=== PATIENT | female | born 1940 | race Caucasian/White ===

== ENCOUNTER 2017-05-01 20:57 | Inpatient (IN) | payer MEDICARE, BC ==
[~2017-05-01] VITALS: Ht 139.7 cm; Wt 61.0 kg
[~2017-05-01 20:57] MED LIST: CRAN1CAP5; CRAN1TAB3; DILT240C90; DOCU100C40 PO; FLEC150T; HYDR-3964 PO; VALS160T2 PO
[2017-05-01] MEDS ORDERED: temazepam 15mg capsule PO PRN (21:00)
[2017-05-01] MEDS ORDERED: normal saline 1000ML IV soln IVB ONE (21:20)
[2017-05-01] MEDS ORDERED: fentaNYL/PF 50MCG/1 ML 2ML syringe IV ONE (21:35)
[2017-05-01] MEDS ORDERED: ondansetron/PF 4mg/2ml inj IV ONE (21:35)
[2017-05-01 21:37] LABS: BASOPHILS % (AUTO) 0.4 % (0-1); EOSINOPHILS % (AUTO) 0.2 % (0-6); HEMATOCRIT 41.1 % (35.0-45.0); HEMOGLOBIN 14.1 g/dl (12.0-16.0); LYMPHOCYTES # (AUTO) 1.5 X10'3 (1.1-4.8); MEAN CORPUSCULAR HEMOGLOBIN 34.8 PG (27.0-31.0); MEAN CORPUSCULAR HGB CONC 34.4 % (33.0-36.5); MEAN PLATELET VOLUME 7.8 FL (7.4-10.4); MONOCYTES # (AUTO) 0.3 X10'3 (0-0.9); MONOCYTES % (AUTO) 4.1 % (2-12); NEUTROPHILS # (AUTO) 6.4 X10'3 (1.8-7.7); NEUTROPHILS % (AUTO) 77.3 % (42-75); PLATELET COUNT 203 X10'3 (140-440); RED BLOOD COUNT 4.07 X10'6 (4.20-5.60); RED CELL DISTRIBUTION WIDTH 13.1 % (11.5-14.5); WHITE BLOOD COUNT 8.2 X10'3 (4.5-11.0)
[2017-05-01 21:45] LABS: CLARITY,URINE SLIGHTLY CLOUDY (Clear); COLOR,URINE YELLOW (Yellow); GLUCOSE, URINE NEGATIVE (Neg); KETONES,URINE NEGATIVE (Neg); LEUKOCYTE ESTERASE ,URINE LARGE (Neg); NITRITES, URINE POSITIVE (Neg); OCCULT BLOOD,URINE TRACE-INTACT (Neg); PROTEIN,URINE NEGATIVE (Neg); UROBILINOGEN,URINE 0.2 E.U/dL (0.2-1.0)
[2017-05-01 21:50] LABS: UA COLLECTION TYPE CLN CATCH MIDSTREAM
[2017-05-01 21:56] LABS: ALANINE AMINOTRANSFERASE 24 U/L (12-78); ALBUMIN/GLOBULIN RATIO 1.2 (1.1-1.5); ALKALINE PHOSPHATASE 120 IU/L (46-116); ANION GAP 10 (8-16); ASPARTATE AMINO TRANSFERASE 26 U/L (10-37); BILIRUBIN,TOTAL 0.3 MG/DL (0.1-1.0); BLOOD UREA NITROGEN 20 MG/DL (7-18); BUN/CREATININE RATIO 28.6 (6.6-38.0); CALCIUM 9.8 MG/DL (8.5-10.1); CHLORIDE 98 MMOL/L (99-107); GLUCOSE 124 MG/DL (70-104); MAGNESIUM 1.7 MG/DL (1.5-2.4); POTASSIUM 4.1 MMOL/L (3.5-5.1); SODIUM 134 MMOL/L (135-145); TOTAL CARBON DIOXIDE 26.3 MMOL/L (24-32); TOTAL PROTEIN 7.4 G/DL (6.4-8.2); eGFR 81 ML/MIN
[2017-05-01 22:22] LABS: BACTERIA,URINE 3+ /HPF (Neg); MUCUS STRANDS NONE SEEN /LPF (Neg); RBC,URINE 0-2 /HPF (0-2); SQUAMOUS EPITHELIAL CELL,UR FEW /LPF (FEW); WBC,URINE 30-50 /HPF (0-4)
[2017-05-01] MEDS ORDERED: magnesium 2GM in 50ml NS 50 ML IV PRN (23:15)
[2017-05-01] MEDS ORDERED: potassium Cl 20 mEq SR tablet PO PRN ×2 (23:15)
[2017-05-01] MEDS ORDERED: mag hydrox/Alum hydrox/simeth 30ml oral suspension PO PRN (23:15)
[2017-05-01] MEDS ORDERED: ondansetron/PF 4mg/2ml inj IV PRN (23:15)
[2017-05-01] MEDS ORDERED: acetaminophen 325mg tablet PO PRN (23:15)
[2017-05-01] MEDS ORDERED: magnesium 4gm in 100ml NS 100 ML IV PRN (23:15)
[2017-05-01] MEDS ORDERED: potassium Cl 40MEQ/NS 500ml 500 ML IV PRN ×2 (23:15)
[2017-05-01] MEDS ORDERED: morphine 2 MG/ML inj. syringe IV PRN (23:15)
[2017-05-01] MEDS: morphine 2 MG/ML inj. syringe IV PRN (23:48)
[2017-05-02] MEDS ORDERED: CefTRIAXone 2gm/NS 100ml IVPB 100 ML IV ONE (00:15)
[2017-05-02 00:20] VITALS: BP 98/46
[2017-05-02] MEDS: normal saline 1000ml 1,000 ML IV SCH ×2 (00:51→11:47)
[2017-05-02 03:33] LABS: ALANINE AMINOTRANSFERASE 21 U/L (12-78); ALBUMIN 3.3 G/DL (3.4-5.0); ALBUMIN/GLOBULIN RATIO 1.1 (1.1-1.5); ALKALINE PHOSPHATASE 97 IU/L (46-116); ANION GAP 7 (8-16); ASPARTATE AMINO TRANSFERASE 20 U/L (10-37); BILIRUBIN,TOTAL 0.2 MG/DL (0.1-1.0); BLOOD UREA NITROGEN 18 MG/DL (7-18); CALCIUM 9.3 MG/DL (8.5-10.1); CHLORIDE 102 MMOL/L (99-107); GLUCOSE 93 MG/DL (70-104); MAGNESIUM 1.5 MG/DL (1.5-2.4); POTASSIUM 4.4 MMOL/L (3.5-5.1); SODIUM 135 MMOL/L (135-145); TOTAL CARBON DIOXIDE 25.7 MMOL/L (24-32); TOTAL PROTEIN 6.2 G/DL (6.4-8.2); eGFR > 90 ML/MIN
[2017-05-02] MEDS: morphine 2 MG/ML inj. syringe IV PRN ×6 (03:49→22:22)
[2017-05-02 07:03] VITALS: BP 121/62
[2017-05-02] MEDS: K and/or MAG REPLACEMENT MC SCH (08:00)
[2017-05-02] MEDS: diltiazem CD 120mg capsule (once-daily) PO SCH (08:00)
[2017-05-02] MEDS: flecainide 50mg tablet PO SCH ×2 (08:00→20:11)
[2017-05-02 10:00] VITALS: BP 139/65
[2017-05-02 10:10] LABS: BASOPHILS % (AUTO) 0.3 % (0-1); EOSINOPHILS # (AUTO) 0.1 X10'3 (0-0.9); EOSINOPHILS % (AUTO) 1.1 % (0-6); HEMOGLOBIN 11.9 g/dl (12.0-16.0); LYMPHOCYTES # (AUTO) 1.3 X10'3 (1.1-4.8); LYMPHOCYTES % (AUTO) 19.2 % (21-51); MEAN CORPUSCULAR HEMOGLOBIN 34.3 PG (27.0-31.0); MEAN CORPUSCULAR HGB CONC 34.2 % (33.0-36.5); MEAN CORPUSCULAR VOLUME 100.3 FL (78-98); MEAN PLATELET VOLUME 8.1 FL (7.4-10.4); MONOCYTES # (AUTO) 0.7 X10'3 (0-0.9); MONOCYTES % (AUTO) 9.8 % (2-12); NEUTROPHILS # (AUTO) 4.7 X10'3 (1.8-7.7); NEUTROPHILS % (AUTO) 69.6 % (42-75); PLATELET COUNT 177 X10'3 (140-440); RED BLOOD COUNT 3.48 X10'6 (4.20-5.60); RED CELL DISTRIBUTION WIDTH 13.3 % (11.5-14.5); WHITE BLOOD COUNT 6.7 X10'3 (4.5-11.0)
[2017-05-02] MEDS: lactobacillus rhamnosus 10,000 MMU CELLS/CAPSULE PO SCH (17:38)
[2017-05-02 18:00] VITALS: BP 152/84
[2017-05-02] MEDS ORDERED: morphine 2 MG/ML inj. syringe IV PRN (19:25)
[2017-05-02] MEDS ORDERED: CefTRIAXone 2gm/NS 100ml IVPB 100 ML IV SCH ×2 (20:00)
[2017-05-02] MEDS: HYDROcodone/acetaminophen 5mg/325mg tablet PO SCH (20:13)
[2017-05-02 22:00] VITALS: BP 148/71
[2017-05-03] VITALS (19 sets, daily range): BP systolic 93–146; BP diastolic 50–93
[2017-05-03] MEDS: morphine 2 MG/ML inj. syringe IV PRN ×3 (04:10→18:46)
[2017-05-03] MEDS ORDERED: vancomycin 1,000mg inj ONE (07:00)
[2017-05-03] MEDS ORDERED: epiNEPHrine 1 mg/ml inj ONE (07:00)
[2017-05-03] MEDS ORDERED: ketorolac trometh. 30mg/ml inj. ONE (07:00)
[2017-05-03] MEDS ORDERED: ROPIVAcaine 0.5% (5mg/ml) 30ml vial ONE ×2 (07:00→08:10)
[2017-05-03] MEDS ORDERED: cloNIDine hcl/PF 100mcg/ml inj ONE ×2 (07:00→08:08)
[2017-05-03] MEDS ORDERED: vancomycin/NS 1 GM ADD-VANTAGE 250 ML IV ONE ×2 (07:10→21:00)
[2017-05-03] MEDS: pantoprazole 40mg Tablet.DR PO SCH (07:30)
[2017-05-03] MEDS: lactobacillus rhamnosus 10,000 MMU CELLS/CAPSULE PO SCH ×2 (07:30→17:30)
[2017-05-03] MEDS: diltiazem CD 120mg capsule (once-daily) PO SCH (07:42)
[2017-05-03] MEDS ORDERED: ringers solution, lacted 1,000 ML IV SCH (07:53)
[2017-05-03] MEDS ORDERED: labetalol 5mg/ml 20ml inj. IV PRN (07:55)
[2017-05-03] MEDS ORDERED: morphine 2 MG/ML inj. syringe IV PRN ×2 (07:55)
[2017-05-03] MEDS ORDERED: fentaNYL/PF 50MCG/1 ML 2ML syringe IV PRN ×2 (07:55)
[2017-05-03] MEDS ORDERED: ondansetron/PF 4mg/2ml inj IV PRN ×2 (07:55→09:15)
[2017-05-03] MEDS ORDERED: hydrALAZINE 20mg/ml inj. IV PRN (07:55)
[2017-05-03] MEDS: multivitamins, therapeutics tablet PO SCH (08:00)
[2017-05-03] MEDS: cefazolin/dext.iso 2gm/50ml 50 ML IV SCH ×2 (08:00→16:35)
[2017-05-03] MEDS: flecainide 50mg tablet PO SCH ×2 (08:00→19:53)
[2017-05-03] MEDS: K and/or MAG REPLACEMENT MC SCH (08:00)
[2017-05-03] MEDS: HYDROcodone/acetaminophen 5mg/325mg tablet PO SCH ×3 (08:00→19:53)
[2017-05-03] MEDS ORDERED: MORPHINE SULFATE/PF 0.5 MG/ML 10ML AMPUL ONE (08:06)
[2017-05-03] MEDS ORDERED: MIDAZolam 1mg/ml 10ml vial ONE (08:06)
[2017-05-03] MEDS ORDERED: fentaNYL/PF 50MCG/1 ML 2ML syringe ONE (08:06)
[2017-05-03] MEDS ORDERED: tetracaine 1% (10mg/ml) pres. free inj. ONE (08:08)
[2017-05-03 08:20] LABS: ALANINE AMINOTRANSFERASE 25 U/L (12-78); ALBUMIN 3.3 G/DL (3.4-5.0); ALKALINE PHOSPHATASE 103 IU/L (46-116); ANION GAP 6 (8-16); ASPARTATE AMINO TRANSFERASE 23 U/L (10-37); BILIRUBIN,TOTAL 0.7 MG/DL (0.1-1.0); BLOOD UREA NITROGEN 14 MG/DL (7-18); BUN/CREATININE RATIO 23.3 (6.6-38.0); CALCIUM 9.3 MG/DL (8.5-10.1); CHLORIDE 99 MMOL/L (99-107); GLUCOSE 96 MG/DL (70-104); MAGNESIUM 1.6 MG/DL (1.5-2.4); POTASSIUM 4.2 MMOL/L (3.5-5.1); SODIUM 133 MMOL/L (135-145); TOTAL CARBON DIOXIDE 28.5 MMOL/L (24-32); TOTAL PROTEIN 6.6 G/DL (6.4-8.2); eGFR > 90 ML/MIN
[2017-05-03 08:25] LABS: BASOPHILS % (AUTO) 0.3 % (0-1); EOSINOPHILS # (AUTO) 0.1 X10'3 (0-0.9); EOSINOPHILS % (AUTO) 1.4 % (0-6); HEMATOCRIT 36.5 % (35.0-45.0); HEMOGLOBIN 12.7 g/dl (12.0-16.0); LYMPHOCYTES # (AUTO) 1.1 X10'3 (1.1-4.8); LYMPHOCYTES % (AUTO) 17.3 % (21-51); MEAN CORPUSCULAR HEMOGLOBIN 34.8 PG (27.0-31.0); MEAN CORPUSCULAR HGB CONC 34.8 % (33.0-36.5); MEAN PLATELET VOLUME 8.1 FL (7.4-10.4); MONOCYTES # (AUTO) 0.5 X10'3 (0-0.9); MONOCYTES % (AUTO) 8.5 % (2-12); NEUTROPHILS # (AUTO) 4.6 X10'3 (1.8-7.7); NEUTROPHILS % (AUTO) 72.5 % (42-75); PLATELET COUNT 166 X10'3 (140-440); RED BLOOD COUNT 3.65 X10'6 (4.20-5.60); RED CELL DISTRIBUTION WIDTH 13.3 % (11.5-14.5); WHITE BLOOD COUNT 6.3 X10'3 (4.5-11.0)
[2017-05-03] MEDS ORDERED: ceFAZolin 1000mg inj ONE ×2 (08:41)
[2017-05-03] MEDS ORDERED: dexamethasone sod phosphate 4mg/ml inj. ONE (08:41)
[2017-05-03] MEDS ORDERED: tranexamic acid inj. 610 MG in normal saline 100ml IV soln 93.9 ML IV ONE ×4 (08:45)
[2017-05-03] MEDS ORDERED: albumin (Human) 5% 250ml 250 ML IV ONE ×5 (08:54→12:58)
[2017-05-03] MEDS ORDERED: diphenhydrAMINE 50 mg/ml inj IV PRN (09:15)
[2017-05-03] MEDS ORDERED: midazolam 2 mg/2 ml injection ONE ×2 (11:38)
[2017-05-03] MEDS ORDERED: meperidine/PF 50mg/ml syringe ONE (13:18)
[2017-05-03 13:55] LABS: ISTAT ANION GAP 13 (8-12); ISTAT BUN 11 mg/dL (6-19); ISTAT CL 98 mmol/L (99-107); ISTAT CREATININE 0.6 mg/dL (0.6-1.1); ISTAT GLUCOSE 117 mg/dL (70-104); ISTAT IONIZED CALCIUM 1.31 mmol/L (1.03-1.32); ISTAT K 4.4 mmol/L (3.5-5.1); ISTAT NA 134 mmol/L (135-145); ISTAT TOTAL CO2 23 mmol/L (24-32); ISTAT eGFR > 90 ML/MIN; POC BUN/CREATININE RATIO 18.3 (6.6-38.0)
[2017-05-03] MEDS ORDERED: HYDROcodone/acetaminophen 10/325mg tab PO PRN ×2 (13:55)
[2017-05-03 14:46] LABS: ISTAT HGB 6.5 g/dl (12.0-16.0); ISTAT Hct 19 %PCV (35-48)
[2017-05-03] MEDS ORDERED: cefazolin/dext.iso 2gm/50ml 50 ML IV SCH (16:00)
[2017-05-03 18:08] LABS: BASOPHILS % (AUTO) 0 % (0-1); EOSINOPHILS # (AUTO) 0.1 X10'3 (0-0.9); EOSINOPHILS % (AUTO) 0.9 % (0-6); HEMATOCRIT 24.4 % (35.0-45.0); HEMOGLOBIN 8.4 g/dl (12.0-16.0); LYMPHOCYTES # (AUTO) 0.2 X10'3 (1.1-4.8); LYMPHOCYTES % (AUTO) 3.2 % (21-51); MEAN CORPUSCULAR HEMOGLOBIN 32.8 PG (27.0-31.0); MEAN CORPUSCULAR HGB CONC 34.7 % (33.0-36.5); MEAN CORPUSCULAR VOLUME 94.7 FL (78-98); MEAN PLATELET VOLUME 7.5 FL (7.4-10.4); MONOCYTES # (AUTO) 0.3 X10'3 (0-0.9); NEUTROPHILS # (AUTO) 5.9 X10'3 (1.8-7.7); NEUTROPHILS % (AUTO) 90.9 % (42-75); PLATELET COUNT 86 X10'3 (140-440); RED BLOOD COUNT 2.58 X10'6 (4.20-5.60); RED CELL DISTRIBUTION WIDTH 15.5 % (11.5-14.5); WHITE BLOOD COUNT 6.5 X10'3 (4.5-11.0)
[2017-05-03 18:18] LABS: INR 1.2 INR
[2017-05-03 19:27] LABS: BASOPHILS % (AUTO) 0 % (0-1); EOSINOPHILS % (AUTO) 0 % (0-6); HEMATOCRIT 24.2 % (35.0-45.0); HEMOGLOBIN 8.3 g/dl (12.0-16.0); LYMPHOCYTES # (AUTO) 0.2 X10'3 (1.1-4.8); LYMPHOCYTES % (AUTO) 3.5 % (21-51); MEAN CORPUSCULAR HEMOGLOBIN 32.7 PG (27.0-31.0); MEAN CORPUSCULAR HGB CONC 34.4 % (33.0-36.5); MEAN CORPUSCULAR VOLUME 95.1 FL (78-98); MEAN PLATELET VOLUME 8.2 FL (7.4-10.4); MONOCYTES # (AUTO) 0.3 X10'3 (0-0.9); MONOCYTES % (AUTO) 5.4 % (2-12); NEUTROPHILS # (AUTO) 5.8 X10'3 (1.8-7.7); NEUTROPHILS % (AUTO) 91.1 % (42-75); PLATELET COUNT 88 X10'3 (140-440); RED BLOOD COUNT 2.55 X10'6 (4.20-5.60); RED CELL DISTRIBUTION WIDTH 15.9 % (11.5-14.5); WHITE BLOOD COUNT 6.3 X10'3 (4.5-11.0)
[2017-05-03] MEDS: potassium cl 20mEq in 1/2 NS 1,000 ML IV SCH (19:45)
[2017-05-04] MEDS: morphine 2 MG/ML inj. syringe IV PRN ×3 (00:39→04:35)
[2017-05-04 02:00] VITALS: BP 142/64
[2017-05-04] MEDS: potassium cl 20mEq in 1/2 NS 1,000 ML IV SCH ×3 (04:39→19:40)
[2017-05-04] MEDS: oxyCODONE/APAP 10/325mg tablet PO PRN ×5 (05:34→23:28)
[2017-05-04 05:57] LABS: BASOPHILS % (AUTO) 0 % (0-1); EOSINOPHILS % (AUTO) 0.1 % (0-6); HEMATOCRIT 23.3 % (35.0-45.0); HEMOGLOBIN 8.3 g/dl (12.0-16.0); LYMPHOCYTES # (AUTO) 0.7 X10'3 (1.1-4.8); LYMPHOCYTES % (AUTO) 9.6 % (21-51); MEAN CORPUSCULAR HEMOGLOBIN 33.7 PG (27.0-31.0); MEAN CORPUSCULAR HGB CONC 35.6 % (33.0-36.5); MEAN CORPUSCULAR VOLUME 94.8 FL (78-98); MEAN PLATELET VOLUME 8.4 FL (7.4-10.4); MONOCYTES # (AUTO) 0.7 X10'3 (0-0.9); MONOCYTES % (AUTO) 9.7 % (2-12); NEUTROPHILS # (AUTO) 5.5 X10'3 (1.8-7.7); NEUTROPHILS % (AUTO) 80.6 % (42-75); PLATELET COUNT 90 X10'3 (140-440); RED BLOOD COUNT 2.46 X10'6 (4.20-5.60); WHITE BLOOD COUNT 6.8 X10'3 (4.5-11.0)
[2017-05-04 06:28] LABS: ALANINE AMINOTRANSFERASE 23 U/L (12-78); ALBUMIN 2.9 G/DL (3.4-5.0); ALBUMIN/GLOBULIN RATIO 1.5 (1.1-1.5); ALKALINE PHOSPHATASE 46 IU/L (46-116); ANION GAP 6 (8-16); ASPARTATE AMINO TRANSFERASE 30 U/L (10-37); BILIRUBIN,TOTAL 0.8 MG/DL (0.1-1.0); BLOOD UREA NITROGEN 15 MG/DL (7-18); CALCIUM 8.4 MG/DL (8.5-10.1); CHLORIDE 103 MMOL/L (99-107); GLUCOSE 91 MG/DL (70-104); MAGNESIUM 1.3 MG/DL (1.5-2.4); POTASSIUM 4.6 MMOL/L (3.5-5.1); SODIUM 133 MMOL/L (135-145); TOTAL CARBON DIOXIDE 24.4 MMOL/L (24-32); TOTAL PROTEIN 4.8 G/DL (6.4-8.2); eGFR > 90 ML/MIN
[2017-05-04 06:52] VITALS: BP 136/71
[2017-05-04] MEDS: pantoprazole 40mg Tablet.DR PO SCH (07:43)
[2017-05-04] MEDS: lactobacillus rhamnosus 10,000 MMU CELLS/CAPSULE PO SCH ×2 (07:43→17:36)
[2017-05-04] MEDS: magnesium Cl slow-release 64mg tablet PO PRN ×2 (07:44→18:54)
[2017-05-04] MEDS: flecainide 50mg tablet PO SCH ×2 (07:45→18:54)
[2017-05-04] MEDS: diltiazem CD 120mg capsule (once-daily) PO SCH (07:45)
[2017-05-04] MEDS: multivitamins, therapeutics tablet PO SCH (07:45)
[2017-05-04] MEDS: aspirin 325mg tablet PO SCH (07:46)
[2017-05-04] MEDS: K and/or MAG REPLACEMENT MC SCH (08:00)
[2017-05-04] MEDS: cefTRIAXone 1g/NS 100ml IVPB 100 ML IV SCH (09:55)
[2017-05-04 10:00] VITALS: BP 107/57
[2017-05-04 18:23] VITALS: BP 140/73
[2017-05-04 22:12] VITALS: BP 119/63
[2017-05-05] MEDS: potassium cl 20mEq in 1/2 NS 1,000 ML IV SCH ×3 (03:40→19:33)
[2017-05-05] MEDS: oxyCODONE/APAP 10/325mg tablet PO PRN ×4 (04:12→18:50)
[2017-05-05 05:00] VITALS: BP 144/71
[2017-05-05 06:11] LABS: BASOPHILS % (AUTO) 0.1 % (0-1); EOSINOPHILS # (AUTO) 0.1 X10'3 (0-0.9); EOSINOPHILS % (AUTO) 1.2 % (0-6); HEMATOCRIT 23.6 % (35.0-45.0); HEMOGLOBIN 8.4 g/dl (12.0-16.0); LYMPHOCYTES # (AUTO) 0.7 X10'3 (1.1-4.8); LYMPHOCYTES % (AUTO) 7.6 % (21-51); MEAN CORPUSCULAR HEMOGLOBIN 34.3 PG (27.0-31.0); MEAN CORPUSCULAR HGB CONC 35.8 % (33.0-36.5); MEAN CORPUSCULAR VOLUME 95.9 FL (78-98); MEAN PLATELET VOLUME 8.7 FL (7.4-10.4); MONOCYTES # (AUTO) 0.9 X10'3 (0-0.9); MONOCYTES % (AUTO) 10.5 % (2-12); NEUTROPHILS # (AUTO) 7.2 X10'3 (1.8-7.7); NEUTROPHILS % (AUTO) 80.6 % (42-75); PLATELET COUNT 120 X10'3 (140-440); RED BLOOD COUNT 2.46 X10'6 (4.20-5.60); RED CELL DISTRIBUTION WIDTH 15.4 % (11.5-14.5); WHITE BLOOD COUNT 8.9 X10'3 (4.5-11.0)
[2017-05-05 06:49] LABS: ALANINE AMINOTRANSFERASE 27 U/L (12-78); ALBUMIN/GLOBULIN RATIO 1.2 (1.1-1.5); ALKALINE PHOSPHATASE 61 IU/L (46-116); ANION GAP 7 (8-16); ASPARTATE AMINO TRANSFERASE 33 U/L (10-37); BILIRUBIN,TOTAL 0.5 MG/DL (0.1-1.0); BLOOD UREA NITROGEN 16 MG/DL (7-18); CALCIUM 8.8 MG/DL (8.5-10.1); CHLORIDE 99 MMOL/L (99-107); GLUCOSE 131 MG/DL (70-104); MAGNESIUM 1.5 MG/DL (1.5-2.4); POTASSIUM 4.5 MMOL/L (3.5-5.1); SODIUM 130 MMOL/L (135-145); TOTAL CARBON DIOXIDE 23.7 MMOL/L (24-32); TOTAL PROTEIN 5.5 G/DL (6.4-8.2); eGFR 69 ML/MIN
[2017-05-05] MEDS: cefTRIAXone 1g/NS 100ml IVPB 100 ML IV SCH (08:00)
[2017-05-05] MEDS: K and/or MAG REPLACEMENT MC SCH (08:00)
[2017-05-05] MEDS: lactobacillus rhamnosus 10,000 MMU CELLS/CAPSULE PO SCH ×2 (08:54→16:35)
[2017-05-05] MEDS: pantoprazole 40mg Tablet.DR PO SCH (08:54)
[2017-05-05] MEDS: flecainide 50mg tablet PO SCH ×2 (08:54→21:00)
[2017-05-05] MEDS: diltiazem CD 120mg capsule (once-daily) PO SCH (08:54)
[2017-05-05] MEDS: multivitamins, therapeutics tablet PO SCH (08:55)
[2017-05-05] MEDS: aspirin 325mg tablet PO SCH (08:55)
[2017-05-05 10:00] VITALS: BP 119/57
[2017-05-05] MEDS ORDERED: CefTRIAXone 1 gm/50ml D5W ADV 50 ML IV SCH (12:12)
[2017-05-05] MEDS ORDERED: iohexol 350MG/ML 100ml bottle IV ONE (13:18)
[2017-05-05 18:00] VITALS: BP 100/46
[2017-05-05 22:00] VITALS: BP 98/51
[2017-05-06] VITALS (12 sets, daily range): BP systolic 108–147; BP diastolic 49–70
[2017-05-06] MEDS: potassium cl 20mEq in 1/2 NS 1,000 ML IV SCH ×3 (03:40→19:40)
[2017-05-06] MEDS: magnesium hydroxide 30ml (MOM) UD suspension PO PRN (04:40)
[2017-05-06] MEDS: oxyCODONE/APAP 10/325mg tablet PO PRN ×3 (04:40→15:49)
[2017-05-06 06:17] LABS: BASOPHILS % (AUTO) 0.2 % (0-1); EOSINOPHILS # (AUTO) 0.1 X10'3 (0-0.9); EOSINOPHILS % (AUTO) 1.9 % (0-6); HEMOGLOBIN 7.7 g/dl (12.0-16.0); LYMPHOCYTES # (AUTO) 0.8 X10'3 (1.1-4.8); LYMPHOCYTES % (AUTO) 10.3 % (21-51); MEAN CORPUSCULAR HEMOGLOBIN 33.6 PG (27.0-31.0); MEAN CORPUSCULAR HGB CONC 35.2 % (33.0-36.5); MEAN CORPUSCULAR VOLUME 95.6 FL (78-98); MEAN PLATELET VOLUME 8.4 FL (7.4-10.4); MONOCYTES # (AUTO) 0.8 X10'3 (0-0.9); MONOCYTES % (AUTO) 9.6 % (2-12); NEUTROPHILS # (AUTO) 6.1 X10'3 (1.8-7.7); PLATELET COUNT 144 X10'3 (140-440); RED BLOOD COUNT 2.29 X10'6 (4.20-5.60); RED CELL DISTRIBUTION WIDTH 15.6 % (11.5-14.5); WHITE BLOOD COUNT 7.8 X10'3 (4.5-11.0)
[2017-05-06 06:39] LABS: HEMATOCRIT 21.9 % (35.0-45.0)
[2017-05-06 06:40] LABS: ALANINE AMINOTRANSFERASE 19 U/L (12-78); ALBUMIN 2.6 G/DL (3.4-5.0); ALBUMIN/GLOBULIN RATIO 0.9 (1.1-1.5); ALKALINE PHOSPHATASE 60 IU/L (46-116); ANION GAP 6 (8-16); ASPARTATE AMINO TRANSFERASE 31 U/L (10-37); BILIRUBIN,TOTAL 0.5 MG/DL (0.1-1.0); BLOOD UREA NITROGEN 14 MG/DL (7-18); BUN/CREATININE RATIO 22.2 (6.6-38.0); CALCIUM 9.1 MG/DL (8.5-10.1); CHLORIDE 102 MMOL/L (99-107); CREATININE 0.63 MG/DL (0.40-0.90); GLUCOSE 101 MG/DL (70-104); MAGNESIUM 1.6 MG/DL (1.5-2.4); POTASSIUM 4.2 MMOL/L (3.5-5.1); SODIUM 134 MMOL/L (135-145); TOTAL PROTEIN 5.4 G/DL (6.4-8.2); eGFR > 90 ML/MIN
[2017-05-06] MEDS: K and/or MAG REPLACEMENT MC SCH (08:00)
[2017-05-06] MEDS: lactobacillus rhamnosus 10,000 MMU CELLS/CAPSULE PO SCH ×2 (08:59→16:39)
[2017-05-06] MEDS: aspirin 325mg tablet PO SCH (09:00)
[2017-05-06] MEDS: pantoprazole 40mg Tablet.DR PO SCH (09:00)
[2017-05-06] MEDS: flecainide 50mg tablet PO SCH ×2 (09:00→21:00)
[2017-05-06] MEDS: diltiazem CD 120mg capsule (once-daily) PO SCH (09:00)
[2017-05-06] MEDS: multivitamins, therapeutics tablet PO SCH ×2 (09:00→21:04)
[2017-05-06] MEDS ORDERED: potassium Cl 20 mEq SR tablet PO PRN (10:05)
[2017-05-06] MEDS: potassium Cl 20 mEq SR tablet PO PRN ×2 (10:19→14:07)
[2017-05-06] MEDS: cefTRIAXone 1g/NS 100ml IVPB 100 ML IV SCH (19:10)
[2017-05-06] MEDS ORDERED: multivitamins, therapeutics tablet PO ONE (20:18)
[2017-05-06] MEDS ORDERED: thiamine 100mg tablet PO ONE (20:18)
[2017-05-06] MEDS ORDERED: folic acid 1mg tablet PO ONE (20:18)
[2017-05-06] MEDS ORDERED: LORazepam 2 mg/ml vial IV PRN (20:20)
[2017-05-06] MEDS ORDERED: haloperidol lactate 5mg/ml inj IM PRN (20:20)
[2017-05-06] MEDS ORDERED: LORazepam 1 MG tablet PO PRN (20:20)
[2017-05-06] MEDS ORDERED: haloperidol 5mg tablet PO PRN (20:20)
[2017-05-06 20:36] LABS: BASOPHILS % (AUTO) 0.2 % (0-1); EOSINOPHILS # (AUTO) 0.1 X10'3 (0-0.9); EOSINOPHILS % (AUTO) 1.6 % (0-6); HEMATOCRIT 31.5 % (35.0-45.0); LYMPHOCYTES # (AUTO) 0.8 X10'3 (1.1-4.8); LYMPHOCYTES % (AUTO) 10.3 % (21-51); MEAN CORPUSCULAR HEMOGLOBIN 32.7 PG (27.0-31.0); MEAN CORPUSCULAR VOLUME 93.3 FL (78-98); MEAN PLATELET VOLUME 7.6 FL (7.4-10.4); MONOCYTES # (AUTO) 0.9 X10'3 (0-0.9); MONOCYTES % (AUTO) 11.6 % (2-12); NEUTROPHILS # (AUTO) 5.7 X10'3 (1.8-7.7); NEUTROPHILS % (AUTO) 76.3 % (42-75); PLATELET COUNT 154 X10'3 (140-440); RED BLOOD COUNT 3.38 X10'6 (4.20-5.60); RED CELL DISTRIBUTION WIDTH 14.9 % (11.5-14.5); WHITE BLOOD COUNT 7.4 X10'3 (4.5-11.0)
[2017-05-06] MEDS ORDERED: multivitamins, therapeutics tablet PO SCH (20:44)
[2017-05-06] MEDS: folic acid 1mg tablet PO SCH (21:04)
[2017-05-06] MEDS: polyethylene glycol 3350 17gm powd pack PO SCH (21:04)
[2017-05-06] MEDS: thiamine 100mg tablet PO SCH (21:04)
[2017-05-07] MEDS ORDERED: K and/or MAG REPLACEMENT MC SCH (03:00)
[2017-05-07] MEDS: potassium cl 20mEq in 1/2 NS 1,000 ML IV SCH ×3 (03:40→19:40)
[2017-05-07] MEDS: oxyCODONE/APAP 10/325mg tablet PO PRN ×3 (04:03→15:49)
[2017-05-07 06:00] VITALS: BP 110/62
[2017-05-07 06:53] LABS: MAGNESIUM 1.7 MG/DL (1.5-2.4); PHOSPHORUS 1.5 MG/DL (2.3-4.5); POTASSIUM 4.8 MMOL/L (3.5-5.1)
[2017-05-07] MEDS: pantoprazole 40mg Tablet.DR PO SCH ×2 (07:30→08:32)
[2017-05-07] MEDS: thiamine 100mg tablet PO SCH ×2 (08:00→08:31)
[2017-05-07] MEDS: folic acid 1mg tablet PO SCH ×2 (08:00→08:31)
[2017-05-07] MEDS: K and/or MAG REPLACEMENT MC SCH (08:00)
[2017-05-07 08:30] VITALS: BP 167/84
[2017-05-07] MEDS: diltiazem CD 120mg capsule (once-daily) PO SCH (08:30)
[2017-05-07] MEDS: lactobacillus rhamnosus 10,000 MMU CELLS/CAPSULE PO SCH ×2 (08:30→19:21)
[2017-05-07] MEDS: aspirin 325mg tablet PO SCH (08:31)
[2017-05-07] MEDS: flecainide 50mg tablet PO SCH ×2 (08:31→20:57)
[2017-05-07 10:00] VITALS: BP 145/80
[2017-05-07 18:00] VITALS: BP 137/64
[2017-05-07] MEDS: cefTRIAXone 1g/NS 100ml IVPB 100 ML IV SCH (19:20)
[2017-05-07] MEDS: polyethylene glycol 3350 17gm powd pack PO SCH (20:58)
[2017-05-08] MEDS: oxyCODONE/APAP 10/325mg tablet PO PRN ×5 (01:04→20:26)
[2017-05-08] MEDS: potassium cl 20mEq in 1/2 NS 1,000 ML IV SCH ×2 (03:40→11:40)
[2017-05-08 06:00] VITALS: BP 152/72
[2017-05-08 06:04] LABS: MAGNESIUM 1.6 MG/DL (1.5-2.4); PHOSPHORUS 1.4 MG/DL (2.3-4.5)
[2017-05-08] MEDS: folic acid 1mg tablet PO SCH ×2 (08:00→08:26)
[2017-05-08] MEDS: thiamine 100mg tablet PO SCH ×2 (08:00→08:26)
[2017-05-08] MEDS: multivitamins, therapeutics tablet PO SCH ×2 (08:00→08:26)
[2017-05-08] MEDS: lactobacillus rhamnosus 10,000 MMU CELLS/CAPSULE PO SCH ×2 (08:25→17:40)
[2017-05-08] MEDS: pantoprazole 40mg Tablet.DR PO SCH (08:25)
[2017-05-08] MEDS: diltiazem CD 120mg capsule (once-daily) PO SCH (08:25)
[2017-05-08] MEDS: flecainide 50mg tablet PO SCH ×2 (08:26→20:25)
[2017-05-08] MEDS: aspirin 325mg tablet PO SCH (08:26)
[2017-05-08 10:00] VITALS: BP 152/73
[2017-05-08] MEDS: Neutra Phos packet PO SCH ×2 (15:48→23:19)
[2017-05-08] MEDS: K and/or MAG REPLACEMENT MC SCH (15:51)
[2017-05-08] MEDS ORDERED: furosemide 20 MG/2 ML vial IV SCH (16:20)
[2017-05-08 18:00] VITALS: BP 155/73
[2017-05-08] MEDS: cefTRIAXone 1g/NS 100ml IVPB 100 ML IV SCH (19:50)
[2017-05-08] MEDS ORDERED: LORazepam 1 MG tablet PO PRN (20:00)
[2017-05-08] MEDS ORDERED: LORazepam 2 mg/ml vial IV PRN (20:00)
[2017-05-08] MEDS: magnesium hydroxide 30ml (MOM) UD suspension PO PRN (20:27)
[2017-05-08] MEDS: polyethylene glycol 3350 17gm powd pack PO SCH (20:30)
[2017-05-08 22:00] VITALS: BP 143/71
[2017-05-09] MEDS: oxyCODONE/APAP 10/325mg tablet PO PRN ×3 (00:03→13:35)
[2017-05-09 06:00] VITALS: BP 140/65
[2017-05-09] MEDS ORDERED: furosemide 20 MG/2 ML vial IV SCH (06:00)
[2017-05-09 06:31] LABS: LIPASE 166 U/L (73-393)
[2017-05-09] MEDS: flecainide 50mg tablet PO SCH (07:58)
[2017-05-09] MEDS: lactobacillus rhamnosus 10,000 MMU CELLS/CAPSULE PO SCH (07:58)
[2017-05-09] MEDS: pantoprazole 40mg Tablet.DR PO SCH (07:58)
[2017-05-09] MEDS: folic acid 1mg tablet PO SCH (07:58)
[2017-05-09] MEDS: Neutra Phos packet PO SCH ×2 (07:59→13:36)
[2017-05-09] MEDS: multivitamins, therapeutics tablet PO SCH (07:59)
[2017-05-09] MEDS: aspirin 325mg tablet PO SCH (07:59)
[2017-05-09] MEDS: thiamine 100mg tablet PO SCH (07:59)
[2017-05-09] MEDS: diltiazem CD 120mg capsule (once-daily) PO SCH (07:59)
[2017-05-09] MEDS: K and/or MAG REPLACEMENT MC SCH (08:00)
[2017-05-09 08:28] LABS: BASOPHILS % (AUTO) 0.9 % (0-1); EOSINOPHILS # (AUTO) 0.1 X10'3 (0-0.9); EOSINOPHILS % (AUTO) 2.3 % (0-6); HEMATOCRIT 30.8 % (35.0-45.0); HEMOGLOBIN 10.6 g/dl (12.0-16.0); LYMPHOCYTES # (AUTO) 0.8 X10'3 (1.1-4.8); LYMPHOCYTES % (AUTO) 15.4 % (21-51); MEAN CORPUSCULAR HEMOGLOBIN 32.6 PG (27.0-31.0); MEAN CORPUSCULAR HGB CONC 34.4 % (33.0-36.5); MEAN CORPUSCULAR VOLUME 94.8 FL (78-98); MEAN PLATELET VOLUME 7.2 FL (7.4-10.4); MONOCYTES # (AUTO) 0.6 X10'3 (0-0.9); MONOCYTES % (AUTO) 11.8 % (2-12); NEUTROPHILS # (AUTO) 3.6 X10'3 (1.8-7.7); NEUTROPHILS % (AUTO) 69.6 % (42-75); PLATELET COUNT 261 X10'3 (140-440); RED BLOOD COUNT 3.25 X10'6 (4.20-5.60); RED CELL DISTRIBUTION WIDTH 15.6 % (11.5-14.5); WHITE BLOOD COUNT 5.2 X10'3 (4.5-11.0)
[2017-05-09 08:48] LABS: ALANINE AMINOTRANSFERASE 30 U/L (12-78); ALBUMIN 2.3 G/DL (3.4-5.0); ALBUMIN/GLOBULIN RATIO 0.8 (1.1-1.5); ALKALINE PHOSPHATASE 67 IU/L (46-116); ANION GAP 5 (8-16); ASPARTATE AMINO TRANSFERASE 30 U/L (10-37); BILIRUBIN,TOTAL 0.5 MG/DL (0.1-1.0); BLOOD UREA NITROGEN 14 MG/DL (7-18); BUN/CREATININE RATIO 17.5 (6.6-38.0); CHLORIDE 101 MMOL/L (99-107); GLUCOSE 88 MG/DL (70-104); SODIUM 137 MMOL/L (135-145); TOTAL CARBON DIOXIDE 31.1 MMOL/L (24-32); TOTAL PROTEIN 5.3 G/DL (6.4-8.2); eGFR 69 ML/MIN
[2017-05-09 10:00] VITALS: BP 188/83
== END 2017-05-09 16:20 | DRG 466 ==
LOC: ER 20:57 → ED HOLD 23:12 → ORTHO 4S 05-02 00:03
PROVIDERS: ADMIT Internal Medicine; ATTEND Internal Medicine
PROC: 0SPD0JZ Removal of Synthetic Substitute from Left Knee Joint, Open Approach (ICD-10-PCS; 2017-05-03)
PROC: 0SRD0J9 Replacement of Left Knee Joint with Synthetic Substitute, Cemented, Open Approach (ICD-10-PCS; 2017-05-03)
PROC: 30233N1 Transfusion of Nonautologous Red Blood Cells into Peripheral Vein, Percutaneous Approach (ICD-10-PCS; 2017-05-03)
PROC: 3E0T3BZ Introduction of Anesthetic Agent into Peripheral Nerves and Plexi, Percutaneous Approach (ICD-10-PCS; 2017-05-03)
PROC: 0QSC04Z Reposition Left Lower Femur with Internal Fixation Device, Open Approach (ICD-10-PCS; principal; 2017-05-03 08:10)
PROC: B3201ZZ Computerized Tomography (CT Scan) of Thoracic Aorta using Low Osmolar Contrast (ICD-10-PCS; 2017-05-05)
PROC: 30233N1 Transfusion of Nonautologous Red Blood Cells into Peripheral Vein, Percutaneous Approach (ICD-10-PCS; 2017-05-06)
DX: S72.402A Unspecified fracture of lower end of left femur, initial encounter for closed fracture (principal); J96.01 Acute respiratory failure with hypoxia; I50.31 Acute diastolic (congestive) heart failure; M97.12XA Periprosthetic fracture around internal prosthetic left knee joint, initial encounter; E87.1 Hypo-osmolality and hyponatremia; D62 Acute posthemorrhagic anemia; E86.0 Dehydration; F03.90 Unspecified dementia, unspecified severity, without behavioral disturbance, psychotic disturbance, mood disturbance, and anxiety; I48.91 Unspecified atrial fibrillation; N39.0 Urinary tract infection, site not specified; J98.11 Atelectasis; I11.0 Hypertensive heart disease with heart failure; S76.192A Other specified injury of left quadriceps muscle, fascia and tendon, initial encounter; G89.29 Other chronic pain; W18.39XA Other fall on same level, initial encounter; M19.90 Unspecified osteoarthritis, unspecified site; I25.10 Atherosclerotic heart disease of native coronary artery without angina pectoris; S51.011A Laceration without foreign body of right elbow, initial encounter; Z95.810 Presence of automatic (implantable) cardiac defibrillator; Z79.82 Long term (current) use of aspirin; Z79.899 Other long term (current) drug therapy; Z86.11 Personal history of tuberculosis; Y93.89 Activity, other specified; Y92.89 Other specified places as the place of occurrence of the external cause; Y99.8 Other external cause status
CPT/HCPCS: 36415; 71045; 71275; 73552; 73590; 73700; 76000; 80047; 80053; 81001; 82150; 83605; 83690; 83735; 83880; 84100; 84132; 84300; 84484; 85025; 85610; 86885; 86900; 86901; 86920; 87040; 87070; 87077; 87088; 87186; 93005; 93306; 96361; 96374; 96375; 97110; 97162; 97530; 99285; A4353; A6212; A6213; A6449; A6455; A7000; C1713; C1758; C1776; J0171; J0690; J0696; J0735; J1100; J1885; J1940; J2175; J2250; J2270; J2274; J2405; J2795; J3010; J3370; J7030; J7120; L1832; P9016; P9045; Q9967

== ENCOUNTER 2018-08-08 06:41 | Inpatient (IN) | payer MEDICARE, BC ==
[~2018-08-08] VITALS: Ht 139.7 cm; Wt 61.4 kg
[~2018-08-08 06:41] MED LIST changes: -CRAN1CAP5; -CRAN1TAB3; -DOCU100C40 PO; -HYDR-3964 PO
[2018-08-08] MEDS: morphine 4 MG/ML inj SYRINge IV PRN ×2 (07:09→18:58)
--- NOTE | 2018-08-08 07:29 | NUR ---
Pt to CT
[2018-08-08 07:48] LABS: ALANINE AMINOTRANSFERASE 100 U/L (12-78); ALBUMIN 3.5 G/DL (3.4-5.0); ALBUMIN/GLOBULIN RATIO 1.1 (1.1-1.5); ALKALINE PHOSPHATASE 144 IU/L (46-116); ANION GAP 6 (8-16); ASPARTATE AMINO TRANSFERASE 67 U/L (10-37); BILIRUBIN,TOTAL 0.6 MG/DL (0.1-1.0); BLOOD UREA NITROGEN 26 MG/DL (7-18); BUN/CREATININE RATIO 33.3 (6.6-38.0); CALCIUM 9.8 MG/DL (8.5-10.1); CHLORIDE 89 MMOL/L (99-107); CREATININE 0.78 MG/DL (0.40-0.90); GLUCOSE 99 MG/DL (70-104); POTASSIUM 4.6 MMOL/L (3.5-5.1); SODIUM 122 MMOL/L (135-145); TOTAL CARBON DIOXIDE 27.5 MMOL/L (24-32); TOTAL PROTEIN 6.7 G/DL (6.4-8.2); eGFR 71 ML/MIN
[2018-08-08 07:52] LABS: PARTIAL THROMBOPLASTIN TIME 25 SECONDS (22-32)
--- NOTE | 2018-08-08 07:52 | NUR ---
Pt back from CT, reconnected to monitor. Restingcomfortably at this time.
[2018-08-08 07:57] LABS: BASOPHILS % (AUTO) 0.4 % (0-1); EOSINOPHILS % (AUTO) 0.2 % (0-6); HEMOGLOBIN 13.7 g/dl (12.0-16.0); LYMPHOCYTES # (AUTO) 0.8 X10'3 (1.1-4.8); LYMPHOCYTES % (AUTO) 17.9 % (21-51); MEAN CORPUSCULAR HGB CONC 35.2 g/dL (33.0-36.5); MEAN CORPUSCULAR VOLUME 105.2 FL (78-98); MEAN PLATELET VOLUME 7.5 FL (7.4-10.4); MONOCYTES # (AUTO) 0.6 X10'3 (0-0.9); MONOCYTES % (AUTO) 13.4 % (2-12); NEUTROPHILS # (AUTO) 2.9 X10'3 (1.8-7.7); NEUTROPHILS % (AUTO) 68.1 % (42-75); PLATELET COUNT 230 X10'3 (140-440); RED CELL DISTRIBUTION WIDTH 13.2 % (11.5-14.5); WHITE BLOOD COUNT 4.2 X10'3 (4.5-11.0)
[2018-08-08 09:03] LABS: CLARITY,URINE SLIGHTLY CLOUDY (Clear); COLOR,URINE YELLOW (Yellow); GLUCOSE, URINE NEGATIVE (Neg); KETONES,URINE NEGATIVE (Neg); LEUKOCYTE ESTERASE ,URINE NEGATIVE (Neg); NITRITES, URINE NEGATIVE (Neg); OCCULT BLOOD,URINE NEGATIVE (Neg); PH,URINE 6.5 (4.8-8.0); PROTEIN,URINE NEGATIVE (Neg); UROBILINOGEN,URINE 0.2 E.U/dL (0.2-1.0)
[2018-08-08 09:06] LABS: UA COLLECTION TYPE CLN CATCH MIDSTREAM
[2018-08-08 09:11] LABS: BACTERIA,URINE 4+ /HPF (Neg); RBC,URINE NONE SEEN /HPF (0-2); WBC,URINE 0-4 /HPF (0-4)
[2018-08-08 09:12] LABS: SQUAMOUS EPITHELIAL CELL,UR FEW /LPF (FEW); TRANSITIONAL EPI CELLS,URINE FEW /HPF
[2018-08-08] MEDS ORDERED: potassium Cl 20 mEq SR tablet PO PRN ×2 (09:15)
[2018-08-08] MEDS ORDERED: potassium Cl 40MEQ/NS 500ml 500 ML IV PRN ×2 (09:15)
[2018-08-08] MEDS: K and/or MAG REPLACEMENT MC SCH (09:15)
[2018-08-08] MEDS ORDERED: mag hydrox/Alum hydrox/simeth 30ml oral suspension PO PRN (09:15)
[2018-08-08] MEDS ORDERED: magnesium hydroxide 30ml (MOM) UD suspension PO PRN (09:15)
[2018-08-08] MEDS ORDERED: diphenhydrAMINE 25mg capsule PO PRN (09:15)
[2018-08-08] MEDS ORDERED: magnesium Cl slow-release 64mg tablet PO PRN (09:15)
[2018-08-08] MEDS ORDERED: magnesium 2GM in 50ml NS 50 ML IV PRN (09:15)
[2018-08-08] MEDS ORDERED: magnesium 4gm in 100ml NS 100 ML IV PRN (09:15)
[2018-08-08] MEDS ORDERED: acetaminophen 325mg tablet PO PRN ×2 (09:15)
[2018-08-08 09:42] LABS: HEMOGLOBIN A1C 5.1 % (4.5-6.2)
[2018-08-08 09:52] LABS: CREATINE KINASE 46 U/L (26-192)
[2018-08-08] MEDS: normal saline 1000ml 1,000 ML IV SCH ×3 (10:02→20:37)
--- NOTE | 2018-08-08 11:30 | NUR ---
Patient to room 347 A from ED. Report received from DAVID Allen. Patient alert and oriented. VSS. BLL. Will continue to monitor patient.
[2018-08-08] MEDS: morphine 2 MG/ML inj. syringe IV PRN (12:51)
[2018-08-08] MEDS: ondansetron/PF 4mg/2ml inj IV PRN (13:48)
[2018-08-08] MEDS ORDERED: HYDR-3964 (16:23)
--- NOTE | 2018-08-08 18:33 | NUR ---
Patient in room [facility]. I have received report from Nuvia HERNANDEZ and had the opportunity to ask questions and assume patient care.
--- NOTE | 2018-08-08 18:39 | NUR ---
Problems reprioritized. Patient report given, questions answered & plan of care reviewed with DAVID Krishnan.
[2018-08-08 19:00] VITALS: BP 112/49
[2018-08-08 20:00] VITALS: BP_SYST 138; BP_SYST 142; BP_DIAS 63; BP_DIAS 67
[2018-08-08] MEDS ORDERED: non-formulary drug (Flecainide Acetate 1 TAB) SCH (20:00)
[2018-08-08] MEDS: flecainide 50mg tablet PO SCH (20:40)
[2018-08-08] MEDS: heparin, porcine 5000 units/ml vial SQ SCH (20:43)
[2018-08-09] VITALS: BP 162/73
[2018-08-09] MEDS: morphine 4 MG/ML inj SYRINge IV PRN (01:39)
[2018-08-09] MEDS: normal saline 1000ml 1,000 ML IV SCH (04:58)
[2018-08-09 05:02] LABS: BASOPHILS % (AUTO) 0.5 % (0-1); EOSINOPHILS % (AUTO) 0.6 % (0-6); HEMATOCRIT 33.5 % (35.0-45.0); HEMOGLOBIN 11.8 g/dl (12.0-16.0); LYMPHOCYTES # (AUTO) 0.6 X10'3 (1.1-4.8); LYMPHOCYTES % (AUTO) 19.2 % (21-51); MEAN CORPUSCULAR HEMOGLOBIN 37.3 PG (27.0-31.0); MEAN CORPUSCULAR HGB CONC 35.3 g/dL (33.0-36.5); MEAN CORPUSCULAR VOLUME 105.7 FL (78-98); MEAN PLATELET VOLUME 7.4 FL (7.4-10.4); MONOCYTES # (AUTO) 0.4 X10'3 (0-0.9); MONOCYTES % (AUTO) 12.4 % (2-12); NEUTROPHILS # (AUTO) 2.1 X10'3 (1.8-7.7); NEUTROPHILS % (AUTO) 67.3 % (42-75); PLATELET COUNT 193 X10'3 (140-440); RED BLOOD COUNT 3.17 X10'6 (4.20-5.60); RED CELL DISTRIBUTION WIDTH 13.1 % (11.5-14.5); WHITE BLOOD COUNT 3.2 X10'3 (4.5-11.0)
[2018-08-09 05:15] LABS: ALANINE AMINOTRANSFERASE 74 U/L (12-78); ALBUMIN 2.7 G/DL (3.4-5.0); ALKALINE PHOSPHATASE 114 IU/L (46-116); ANION GAP 6 (8-16); ASPARTATE AMINO TRANSFERASE 48 U/L (10-37); BILIRUBIN,TOTAL 0.5 MG/DL (0.1-1.0); BLOOD UREA NITROGEN 18 MG/DL (7-18); BUN/CREATININE RATIO 31.6 (6.6-38.0); CALCIUM 8.7 MG/DL (8.5-10.1); CHLORIDE 97 MMOL/L (99-107); CHOL/HDL RATIO 1.5 (0.00-4.99); CHOLESTEROL 162 MG/DL (0-200); CREATININE 0.57 MG/DL (0.40-0.90); GLUCOSE 72 MG/DL (70-104); HDL CHOLESTEROL 107 MG/DL (35-60); LDL CHOLESTEROL 33 MG/DL (50-100); MAGNESIUM 1.6 MG/DL (1.5-2.4); PHOSPHORUS 1.4 MG/DL (2.3-4.5); SODIUM 128 MMOL/L (135-145); TOTAL CARBON DIOXIDE 24.7 MMOL/L (24-32); TOTAL PROTEIN 5.4 G/DL (6.4-8.2); TRIGLYCERIDES 49 MG/DL (20-135); eGFR > 90 ML/MIN
[2018-08-09] MEDS: morphine 2 MG/ML inj. syringe IV PRN (05:44)
--- NOTE | 2018-08-09 06:29 | NUR ---
Problems reprioritized. Patient report given, questions answered & plan of care reviewed with Laxmi HERNANDEZ.
--- NOTE | 2018-08-09 06:42 | NUR ---
received report from severo HERNANDEZ
[2018-08-09 07:21] VITALS: BP 154/54
[2018-08-09 08:00] VITALS: BP 154/54
[2018-08-09] MEDS: K and/or MAG REPLACEMENT MC SCH (08:00)
[2018-08-09] MEDS ORDERED: DILTIAZEM HCL SCH (08:00)
[2018-08-09] MEDS ORDERED: non-formulary drug (Valsartan* (Diovan*) 1 TAB) PO SCH (08:00)
[2018-08-09] MEDS: losartan 50mg tablet PO SCH (08:19)
[2018-08-09] MEDS: flecainide 50mg tablet PO SCH ×2 (08:19→20:12)
[2018-08-09] MEDS: diltiazem CD 120mg capsule (once-daily) PO SCH (08:19)
[2018-08-09] MEDS: HYDROcodone/acetaminophen 5mg/325mg tablet PO PRN ×4 (08:20→21:18)
[2018-08-09] MEDS: heparin, porcine 5000 units/ml vial SQ SCH ×2 (08:20→20:12)
[2018-08-09 12:29] VITALS: BP 156/77
--- NOTE | 2018-08-09 13:11 | NUR ---
PRUNE JUICE WAS GIVEN TO PATIENT. PATIENT STATED THAT IF THAT DID NOT WORK SHE WILL TAKE MOM LATER IN DAY
--- NOTE | 2018-08-09 17:24 | NUR ---
Patient is unable to do orthostatics
[2018-08-09 20:00] VITALS: BP_SYST 152; BP_SYST 164; BP_DIAS 70; BP_DIAS 89
[2018-08-09 23:37] VITALS: BP 138/57
[2018-08-10] MEDS: normal saline 1000ml 1,000 ML IV SCH ×3 (02:01→18:17)
[2018-08-10 04:53] LABS: BASOPHILS % (AUTO) 0.7 % (0-1); EOSINOPHILS % (AUTO) 0.9 % (0-6); HEMATOCRIT 38.8 % (35.0-45.0); HEMOGLOBIN 13.3 g/dl (12.0-16.0); LYMPHOCYTES # (AUTO) 0.8 X10'3 (1.1-4.8); LYMPHOCYTES % (AUTO) 24.8 % (21-51); MEAN CORPUSCULAR HEMOGLOBIN 36.8 PG (27.0-31.0); MEAN CORPUSCULAR HGB CONC 34.4 g/dL (33.0-36.5); MEAN PLATELET VOLUME 7.2 FL (7.4-10.4); MONOCYTES # (AUTO) 0.5 X10'3 (0-0.9); MONOCYTES % (AUTO) 15.2 % (2-12); NEUTROPHILS # (AUTO) 1.9 X10'3 (1.8-7.7); NEUTROPHILS % (AUTO) 58.4 % (42-75); PLATELET COUNT 195 X10'3 (140-440); RED BLOOD COUNT 3.63 X10'6 (4.20-5.60); RED CELL DISTRIBUTION WIDTH 13.1 % (11.5-14.5); WHITE BLOOD COUNT 3.3 X10'3 (4.5-11.0)
[2018-08-10] MEDS: HYDROcodone/acetaminophen 5mg/325mg tablet PO PRN ×5 (04:57→23:15)
[2018-08-10 05:05] LABS: ALANINE AMINOTRANSFERASE 82 U/L (12-78); ALBUMIN 3.1 G/DL (3.4-5.0); ALBUMIN/GLOBULIN RATIO 1.1 (1.1-1.5); ALKALINE PHOSPHATASE 129 IU/L (46-116); ANION GAP 3 (8-16); ASPARTATE AMINO TRANSFERASE 51 U/L (10-37); BILIRUBIN,TOTAL 0.6 MG/DL (0.1-1.0); BLOOD UREA NITROGEN 10 MG/DL (7-18); BUN/CREATININE RATIO 17.2 (6.6-38.0); CALCIUM 9.2 MG/DL (8.5-10.1); CHLORIDE 97 MMOL/L (99-107); CREATININE 0.58 MG/DL (0.40-0.90); GLUCOSE 86 MG/DL (70-104); MAGNESIUM 1.9 MG/DL (1.5-2.4); PHOSPHORUS 1.3 MG/DL (2.3-4.5); POTASSIUM 3.7 MMOL/L (3.5-5.1); SODIUM 129 MMOL/L (135-145); TOTAL CARBON DIOXIDE 28.7 MMOL/L (24-32); eGFR > 90 ML/MIN
--- NOTE | 2018-08-10 06:27 | NUR ---
Problems reprioritized. Patient report given, questions answered & plan of care reviewed with DAVID Freeman. Addendum: 08/10/18 at 0627 by Cinthya Morales RN Amended: Links added.
--- NOTE | 2018-08-10 06:34 | NUR ---
Patient in room [facility] 347. I have received report from HOMER HERNANDEZ and had the opportunity to ask questions and assume patient care.
[2018-08-10 07:00] VITALS: BP 144/69
[2018-08-10] MEDS: K and/or MAG REPLACEMENT MC SCH (08:00)
[2018-08-10] MEDS: flecainide 50mg tablet PO SCH ×2 (08:21→19:22)
[2018-08-10] MEDS: losartan 50mg tablet PO SCH (08:21)
[2018-08-10] MEDS: diltiazem CD 120mg capsule (once-daily) PO SCH (08:21)
[2018-08-10] MEDS: heparin, porcine 5000 units/ml vial SQ SCH ×2 (08:22→19:22)
[2018-08-10 11:00] VITALS: BP 177/81
[2018-08-10] MEDS: CefTRIAXone/D5W-Rocephin 1gm 50 ML IV SCH (12:31)
--- NOTE | 2018-08-10 18:52 | NUR ---
Problems reprioritized. Patient report given, questions answered & plan of care reviewed with pat RN.
[2018-08-10 19:00] VITALS: BP 150/75
[2018-08-10 20:20] VITALS: BP_SYST 175; BP_SYST 181; BP_SYST 191; BP_DIAS 114; BP_DIAS 86; BP_DIAS 98
--- NOTE | 2018-08-10 21:45 | NUR ---
Patient in room [facility]. I have received report from DAVID Parr and had the opportunity to ask questions and assume patient care. Addendum: 08/10/18 at 2301 by Magdalena Post RN Amended: Links added.
--- NOTE | 2018-08-10 22:45 | NUR ---
Patient in room [facility] 347. I have received report from Pat RN and had the opportunity to ask questions and assume patient care.
--- NOTE | 2018-08-10 23:20 | NUR ---
pt woke up slightly confused. "whose home am I in". Pt reoriented easily. "I just got confused" alert and oriented now. c/o pain to hips and legs. norco given. poc with pillows. pt states turns self, on Left side at this time, sl repositioned oon back and side. Pt states sacrum is clear, does not want assessed at this time. lungs clear ant, bd +, hr reg. pedal pulses 2+ pt drank water with ease. Bed alarm is on.
[2018-08-11 04:31] LABS: EOSINOPHILS % (AUTO) 1.1 % (0-6); HEMATOCRIT 33.9 % (35.0-45.0); HEMOGLOBIN 11.8 g/dl (12.0-16.0); LYMPHOCYTES % (AUTO) 31.4 % (21-51); MEAN CORPUSCULAR HGB CONC 34.8 g/dL (33.0-36.5); MEAN CORPUSCULAR VOLUME 106.3 FL (78-98); MEAN PLATELET VOLUME 7.4 FL (7.4-10.4); MONOCYTES # (AUTO) 0.5 X10'3 (0-0.9); MONOCYTES % (AUTO) 16.3 % (2-12); NEUTROPHILS # (AUTO) 1.5 X10'3 (1.8-7.7); NEUTROPHILS % (AUTO) 50.2 % (42-75); PLATELET COUNT 189 X10'3 (140-440); RED BLOOD COUNT 3.19 X10'6 (4.20-5.60); WHITE BLOOD COUNT 3.1 X10'3 (4.5-11.0)
[2018-08-11] MEDS: HYDROcodone/acetaminophen 5mg/325mg tablet PO PRN ×3 (04:42→14:14)
[2018-08-11] MEDS: normal saline 1000ml 1,000 ML IV SCH (04:43)
[2018-08-11 04:45] LABS: ALANINE AMINOTRANSFERASE 67 U/L (12-78); ALBUMIN 2.6 G/DL (3.4-5.0); ALKALINE PHOSPHATASE 110 IU/L (46-116); ANION GAP 6 (8-16); ASPARTATE AMINO TRANSFERASE 39 U/L (10-37); BILIRUBIN,TOTAL 0.3 MG/DL (0.1-1.0); BLOOD UREA NITROGEN 7 MG/DL (7-18); BUN/CREATININE RATIO 12.5 (6.6-38.0); CALCIUM 8.4 MG/DL (8.5-10.1); CHLORIDE 99 MMOL/L (99-107); CREATININE 0.56 MG/DL (0.40-0.90); GLUCOSE 79 MG/DL (70-104); MAGNESIUM 1.8 MG/DL (1.5-2.4); PHOSPHORUS 1.3 MG/DL (2.3-4.5); POTASSIUM 3.1 MMOL/L (3.5-5.1); SODIUM 132 MMOL/L (135-145); TOTAL CARBON DIOXIDE 27.4 MMOL/L (24-32); TOTAL PROTEIN 5.3 G/DL (6.4-8.2); eGFR > 90 ML/MIN
--- NOTE | 2018-08-11 05:30 | NUR ---
Enriquez catheter was removed , miquel care given. Patient tolerated well. Addendum: 08/11/18 at 0553 by Joaquin Gibson RN Amended: Links added.
[2018-08-11 05:32] LABS: PLATELET ESTIMATE NORMAL; TOTAL CELLS COUNTED 100
--- NOTE | 2018-08-11 06:31 | NUR ---
Problems reprioritized. Patient report given, questions answered & plan of care reviewed with DAVID Freeman. Addendum: 08/11/18 at 0631 by Magdalena Post RN Amended: Links added.
--- NOTE | 2018-08-11 06:43 | NUR ---
Patient in room [facility] 347. I have received report from Saira HERNANDEZ and had the opportunity to ask questions and assume patient care.
[2018-08-11] MEDS: ondansetron/PF 4mg/2ml inj IV PRN (07:48)
[2018-08-11] MEDS: flecainide 50mg tablet PO SCH (07:48)
[2018-08-11] MEDS: CefTRIAXone/D5W-Rocephin 1gm 50 ML IV SCH (07:48)
[2018-08-11] MEDS: diltiazem CD 120mg capsule (once-daily) PO SCH (07:50)
[2018-08-11] MEDS: losartan 50mg tablet PO SCH (07:53)
[2018-08-11] MEDS: heparin, porcine 5000 units/ml vial SQ SCH (07:55)
[2018-08-11] MEDS: K and/or MAG REPLACEMENT MC SCH (08:00)
[2018-08-11] MEDS ORDERED: CefTRIAXone/D5W-Rocephin 1gm 50 ML IV SCH (08:00)
[2018-08-11 10:47] VITALS: BP 179/85
[2018-08-11 11:38] VITALS: BP 167/77
[2018-08-11] MEDS ORDERED: SULF1TAB49 PO (11:58)
[2018-08-11] MEDS ORDERED: potassium Cl 20 mEq SR tablet PO STA (12:53)
--- NOTE | 2018-08-11 16:12 | NUR ---
patient to be transferred to [facility]. Report called to Davonte HERNANDEZ. Patient in stable condition. Transferred via [facility] to [facility] [id number].
== END 2018-08-11 14:29 | DRG 690 ==
LOC: ER 06:42 → SUR 3N 11:18 → CMPBEDREQ 19:35
PROVIDERS: ADMIT Family Medicine; ATTEND Internal Medicine
DX: N39.0 Urinary tract infection, site not specified (principal); E87.1 Hypo-osmolality and hyponatremia; E55.0 Rickets, active; B96.20 Unspecified Escherichia coli [E. coli] as the cause of diseases classified elsewhere; I10 Essential (primary) hypertension; Z96.653 Presence of artificial knee joint, bilateral; I49.9 Cardiac arrhythmia, unspecified; G89.29 Other chronic pain; W01.0XXA Fall on same level from slipping, tripping and stumbling without subsequent striking against object, initial encounter; Z66 Do not resuscitate; M19.90 Unspecified osteoarthritis, unspecified site; R74.0 Nonspecific elevation of levels of transaminase and lactic acid dehydrogenase [LDH]; I25.10 Atherosclerotic heart disease of native coronary artery without angina pectoris; I48.91 Unspecified atrial fibrillation; Z79.899 Other long term (current) drug therapy; Z86.11 Personal history of tuberculosis; Z95.0 Presence of cardiac pacemaker; Z99.3 Dependence on wheelchair; Y93.89 Activity, other specified; Y92.89 Other specified places as the place of occurrence of the external cause; Y99.8 Other external cause status
CPT/HCPCS: 36415; 70450; 72170; 72192; 80053; 80061; 81001; 82550; 83036; 83735; 83880; 84100; 84443; 84484; 85025; 85610; 85730; 86885; 86900; 86901; 87070; 87077; 87088; 87186; 93005; 93306; 97116; 97161; 97530; 97535; 99285; G0378; J0696; J1644; J2270; J2405; J7030